=== PATIENT | female | born 1990 | race Caucasian/White ===

== ENCOUNTER 2016-03-23 06:30 | Emergency (ER) | payer BC, OTHER ==
[~2016-03-23] VITALS: Ht 157.5 cm; Wt 89.0 kg
[2016-03-23 06:34] VITALS: Ht 157.5 cm; Wt 89.0 kg
[2016-03-23] MEDS ORDERED: PHEN-538 PO (06:55)
[2016-03-23] MEDS ORDERED: NITR-58 PO (06:55)
[2016-03-23 06:57] LABS: URINE BLOOD (Dip) POC 3+ (NEGATIVE)
--- NOTE | 2016-03-23 07:06 | ERD ---
ER Documentation Chief Complaint Date/Time DATE: 03/23/16 TIME: 07:01 Chief Complaint dysuria x 1 day HPI This is a 25-year-old female presenting to the emergency department complaining of painful urination since last night. Patient rates the pain 4 out of 10. She admits to having urgency and frequency. She states that she started having hematuria today. Denies any pelvic pain or flank pain. Denies fevers. Patient states that her last menstrual period started on March 03 2016. ROS All systems reviewed and are negative except as per history of present illness. Medications Home Meds Active Scripts Phenazopyridine Hcl* (Pyridium*) 200 Mg Tab, 200 MG PO TID Y for URINARY PAIN, # 10 TAB Prov:GALE HUERTA PA-C 03/23/16 Nitrofurantoin Monohyd Macrocr* (Macrobid*) 100 Mg Capsr, 100 MG PO BID for 5 Days, CAP Prov:GALE HUERTA PA-C 03/23/16 Allergies Allergies: Coded Allergies: No Known Allergy (Unverified , 03/23/16) PMhx/Soc Medical and Surgical Hx: pt denies Medical Hx, pt denies Surgical Hx Hx Alcohol Use: No Hx Substance Use: No Hx Tobacco Use: No Smoking Status: Never smoker Physical Exam Vitals Vital Signs Date Time Temp Pulse Resp B/P Pulse Ox O2 Delivery O2 Flow Rate FiO2 03/23/16 06:34 98.1 84 18 122/63 99 Physical Exam Const: Well-developed well-nourished no acute distress Head: Atraumatic Eyes: Normal Conjunctiva ENT: Normal External Ears, Nose and Mouth. Neck: Full range of motion. No evidence of meningeal signs Resp: Clear to auscultation bilaterally Cardio: Regular rate and rhythm, no murmurs Abd: Soft, non tender, non distended. Normal bowel sounds Skin: No petechiae or rashes Back: No midline or flank tenderness Ext: No cyanosis, or edema Neur: Awake and alert Psych: Normal Mood and Affect Results 24 hrs Laboratory Tests Test 03/23/16 06:57 Bedside Urine Blood 3+ Bedside Urine Glucose (UA) Negative Bedside Urine Ketones (LAB) Negative Bedside Urine Leukocyte Esterase (L Trace Bedside Urine Nitrite (LAB) Negative Bedside Urine Protein (LAB) Negative Bedside Urine pH (LAB) 6.0 Procedures/MDM 25-year-old female presents to the ER with symptoms most consistent with urinary tract infection. Low suspicion for pyelonephritis, nephrolithiasis, ovarian torsion due to physical examination and diagnostic testing. Urine dipstick showed trace leukocyte esterase with hematuria.Urine preg was negative Patient is hemodynamically stable for discharge. Prescriptions Macrobid and Pyridium have been given to take as directed. Strict precautions were given to return to the ER if not improving as expected or for any worsening signs and symptoms Departure Diagnosis: Primary Impression: UTI (urinary tract infection) Urinary tract infection type: acute cystitis Hematuria presence: with hematuria Qualified Code: N30.01 - Acute cystitis with hematuria Condition: Stable Patient Instructions: Understanding Urinary Tract Infections (UTIs) Referrals: [employer] [id number] [facility] [address] [place] [address] OFFICE FAX [facility] [address] [place] [address] [facility] [address] [place] [address] [address] [facility] [address] [facility] [address] [address] [address] [facility] [address] [place] [address] [facility] [address] [place] [address] [facility] [address] - SANDRA MAHAJAN [address], [facility] [address] [address] TAM, [place] [address] [facility] [address], [facility] [address] [address] [facility] [address] [place], [place] [id number] Additional Instructions: Call your primary care doctor TOMORROW for an appointment during the next 1-2 days.See the doctor sooner or return here if your condition worsens before your appointment time. Take all medicines as directed. Return to this facility if you are not improving as expected. GALE HUERTA PA-C Mar 23, 2016 07:05
== END 2016-03-23 07:25 | disposition home or self-care (01) ==
LOC: FTE 06:30
DX: N30.01 Acute cystitis with hematuria (principal)
CPT/HCPCS: 81003; 99283